=== PATIENT | male | born 1985 | race Caucasian/White ===

== ENCOUNTER 2017-06-09 05:30 | Emergency (ER) | payer SELFPAY ==
[2017-06-09] MEDS ORDERED: 0.9 % SODIUM CHLORIDE 10 ML DISP.SYRIN. IV PRN (06:00)
--- NOTE | 2017-06-09 06:01 | PHYS DOC ---
Past History Past Medical History: No Pertinent History Adult General Chief Complaint Chief Complaint: right flank pain HPI HPI 31-year-old male patient complaining of sudden onset of right flank pain when he woke up at 4 AM to go to the bathroom as a constant sharp pain with radiation to right lower quadrant and left flank and associated with 2 episodes of vomiting at arrival to ER. Patient rated his pain 10 over 10 and denies history of the same pain or recent dehydration or kidney stone. Patient denies diarrhea and constipation and fever and chills. Review of Systems Review of Systems Constitutional: Denies fever or chills [] Eyes: Denies change in visual acuity, redness, or eye pain [] HENT: Denies nasal congestion or sore throat [] Respiratory: Denies cough or shortness of breath [] Cardiovascular: No additional information not addressed in HPI [] GI: Denies abdominal pain, bloody stools or diarrhea , reports nausea and vomiting[] : Denies dysuria or hematuria, reports flank pain and frequency [] Musculoskeletal: Denies back pain or joint pain [] Integument: Denies rash or skin lesions [] Neurologic: Denies headache, focal weakness or sensory changes [] Endocrine: Denies polyuria or polydipsia [] All other systems were reviewed and found to be within normal limits, except as documented in this note. Family History Family History No pertinent family medical history was reported Current Medications Current Medications Current medications were reviewed Allergies Allergies Amoxicillin Physical Exam Physical Exam Constitutional: Well developed, moderate distress, non-toxic appearance. [] HENT: Normocephalic, atraumatic, Eyes: EOMI, conjunctiva normal, no discharge. [] Neck: Normal range of motion, no tenderness, supple, no stridor. [] Cardiovascular:Heart rate regular rhythm, Lungs & Thorax: Bilateral breath sounds clear to auscultation [] Abdomen: Bowel sounds normal, soft, no masses, no pulsatile masses. [] Skin: Warm, dry, no erythema, no rash. [] Back: No tenderness, no CVA tenderness. [] Extremities: No tenderness, no cyanosis, no clubbing, ROM intact, no edema. [] Neurologic: Alert and oriented X 3, normal motor function, normal sensory function, no focal deficits noted. [] Psychologic: Affect normal, judgement normal, mood normal. [] Current Patient Data Vital Signs Vital Signs Date Time Temp Pulse Resp B/P (MAP) Pulse Ox O2 Delivery O2 Flow Rate FiO2 06/09/17 05:35 97.7 85 22 99 Room Air Lab Results Laboratory Tests Test 06/09/17 06:05 White Blood Count 6.9 x10^3/uL (4.0-11.0) Red Blood Count 5.44 x10^6/uL (4.30-5.70) Hemoglobin 16.0 g/dL (13.0-17.5) Hematocrit 47.3 % (39.0-53.0) Mean Corpuscular Volume 87 fL (79-100) Mean Corpuscular Hemoglobin 30 pg (25-35) Mean Corpuscular Hemoglobin Concent 34 g/dL (31-37) Red Cell Distribution Width 14.1 % (11.5-14.5) Platelet Count 297 x10^3/uL (140-400) Neutrophils (%) (Auto) 43 % (31-73) Lymphocytes (%) (Auto) 44 % (24-48) Monocytes (%) (Auto) 8 % (0-9) Eosinophils (%) (Auto) 4 % (0-3) Basophils (%) (Auto) 1 % (0-3) Neutrophils # (Auto) 3.0 x10^3uL (1.8-7.7) Lymphocytes # (Auto) 3.1 x10^3/uL (1.0-4.8) Monocytes # (Auto) 0.6 x10^3/uL (0.0-1.1) Eosinophils # (Auto) 0.2 x10^3/uL (0.0-0.7) Basophils # (Auto) 0.0 x10^3/uL (0.0-0.2) Urine Collection Type Unknown Urine Color Yellow Urine Clarity Hazy Urine pH 5.0 Urine Specific [place] >=1.030 Urine Protein Neg (NEG-TRACE) Urine Glucose (UA) Neg mg/dL (NEG) Urine Ketones (Stick) Neg mg/dL (NEG) Urine Blood Large (NEG) Urine Nitrite Neg (NEG) Urine Bilirubin Neg (NEG) Urine Urobilinogen Dipstick 0.2 mg/dL (0.2 mg/dL) Urine Leukocyte Esterase Neg (NEG) Urine RBC 20-40 /HPF (0-2) Urine WBC Occ /HPF (0-4) Urine Squamous Epithelial Cells Occ /LPF Urine Bacteria 0 /HPF (0-FEW) Urine Mucus Mod /LPF Sodium Level 140 mmol/L (136-145) Potassium Level 3.5 mmol/L (3.5-5.1) Chloride Level 102 mmol/L (98-107) Carbon Dioxide Level 26 mmol/L (21-32) Anion Gap 12 (6-14) Blood Urea Nitrogen 23 mg/dL (8-26) Creatinine 1.0 mg/dL (0.7-1.3) Estimated GFR (Cockcroft-Gault) 86.6 BUN/Creatinine Ratio 23 (6-20) Glucose Level 146 mg/dL (70-99) Calcium Level 8.9 mg/dL (8.5-10.1) Total Bilirubin 0.3 mg/dL (0.2-1.0) Aspartate Amino Transf (AST/SGOT) 22 U/L (15-37) Alanine Aminotransferase (ALT/SGPT) 38 U/L (16-63) Alkaline Phosphatase 89 U/L (46-116) Total Protein 7.7 g/dL (6.4-8.2) Albumin 4.0 g/dL (3.4-5.0) Albumin/Globulin Ratio 1.1 (1.0-1.7) Lipase 86 U/L (73-393) EKG EKG [] Radiology/Procedures Radiology/Procedures CT abd/pelvis Impressions: 3mm stone Course & Med Decision Making Course & Med Decision Making Pertinent Labs and Imaging are pending. [] Dragon Disclaimer Dragon Disclaimer This electronic medical record was generated, in whole or in part, using a voice recognition dictation system. Departure Departure: Impression: Primary Impression: Right flank pain Additional Impressions: Nausea and vomiting Kidney stone Disposition: 01 HOME, SELF-CARE Condition: STABLE Referrals: SHAE CESAR (PCP) Patient Instructions: Kidney Stones Additional Instructions: Jose was seen in the emergency department for abdominal pain. No emergency medical condition was found on history or physical exam. He did have normal labs and imaging that showed a kidney stone. He was given prescriptions for pain medications, nausea medication and Flomax to help and passed stone. He was advised to strain his urine and to discontinue these medications after passing the stone. He is advised follow-up with his primary care doctor as needed for further management. Scripts Ondansetron (ZOFRAN ODT) 4 Mg Tab.rapdis 1 TAB SL Q8HRS, #15 TAB Prov: LELA THAKKAR MD 06/09/17 Hydrocodone Bit/Acetaminophen (NORCO 5-325 TABLET) 1 Each Tablet 1 TAB PO TID for 3 Days, #9 TAB Prov: LELA THAKKAR MD 06/09/17 Tamsulosin Hcl (FLOMAX) 0.4 Mg Cap.er.24h 1 CAP PO DAILY for 14 Days, #14 CAP 11 Refills Prov: LELA THAKKAR MD 06/09/17 Problem Qualifiers MAICO GARCIA MD Jun 09, 2017 06:01 LELA THAKKAR MD Jun 09, 2017 07:10
[2017-06-09] MEDS ORDERED: ONDANSETRON PF 4 MG/2 ML VIAL. IV ONE ×2 (06:15)
[2017-06-09] MEDS ORDERED: KETOROLAC 30 MG/ML VIAL. IV ONE (06:15)
[2017-06-09] MEDS ORDERED: IV NORMAL SALINE 1,000ML 1,000 ML IV SCH (06:15)
[2017-06-09 06:31] LABS: ALBUMIN/GLOBULIN RATIO 1.1 (1.0-1.7); CALCIUM 8.9 mg/dL (8.5-10.1); GFR 86.6; POTASSIUM 3.5 mmol/L (3.5-5.1); TOTAL BILIRUBIN 0.3 mg/dL (0.2-1.0); TOTAL PROTEIN 7.7 g/dL (6.4-8.2)
[2017-06-09 06:34] LABS: BASO % 1 % (0-3); EOS # 0.2 x10^3/uL (0.0-0.7); EOS % 4 % (0-3); HEMATOCRIT 47.3 % (39.0-53.0); LYMPH # 3.1 x10^3/uL (1.0-4.8); LYMPH % 44 % (24-48); MEAN CORPUSCULAR HEMOGLOBIN 30 pg (25-35); MEAN CORPUSCULAR HGB CONC 34 g/dL (31-37); MEAN CORPUSCULAR VOLUME 87 fL (79-100); MONO # 0.6 x10^3/uL (0.0-1.1); MONO % 8 % (0-9); NEUT % 43 % (31-73); PLATELET COUNT 297 x10^3/uL (140-400); RED BLOOD COUNT 5.44 x10^6/uL (4.30-5.70); RED CELL DISTRIBUTION WIDTH 14.1 % (11.5-14.5); WHITE BLOOD COUNT 6.9 x10^3/uL (4.0-11.0)
[2017-06-09 06:44] LABS: BACTERIA,URINE 0 /HPF (0-FEW); BILIRUBIN,URINE NEG (NEG); CLARITY,URINE HAZY; COLOR,URINE YELLOW; GLUCOSE,URINE NEG (NEG); NITRITE,URINE NEG (NEG); RBC,URINE 20-40 /HPF (0-2); SQUAMOUS EPITHELIAL CELL,UR OCC /LPF; UROBILINOGEN,URINE 0.2 mg/dL (0.2 mg/dL); WBC,URINE OCC /HPF (0-4)
[2017-06-09 07:24] VITALS: BP 98/58
--- NOTE | 2017-06-09 07:41 | RAD ---
EXAM: CT abdomen/pelvis without contrast. HISTORY: Right flank pain, nausea/vomiting. TECHNIQUE: Computed tomography of the abdomen and pelvis was performed without intravenous contrast. COMPARISON: None. FINDINGS: Lung windows through the visualized portions of the bases reveal mild atelectasis. Bone windows reveal no suspicious lesions. There is a 3 mm calculus at the orifice of the right ureterovesical junction. There is mild proximal hydroureter. Additional bilateral renal calculi measure up to 4 mm on the left and 3 mm on the right. The kidneys are otherwise unremarkable without contrast. There are calcified granulomas in the spleen. The liver, pancreas, adrenal glands and gallbladder are unremarkable without contrast. There are no pathologically enlarged lymph nodes. The appendix is not inflamed. There is no obstruction. IMPRESSION: 1. 3 mm calculus at the orifice of the right ureterovesical junction versus already in the bladder lumen. 2. Multiple additional bilateral renal calculi measure up to 4 mm on the left. *One or more of the following individualized dose reduction techniques were utilized for this examination: 1. Automated exposure control. 2. Adjustment of the mA and/or kV according to patient size. 3. Use of iterative reconstruction technique.
[2017-06-09] MEDS ORDERED: TAMSULOSIN 0.4 MG CAP.ER.24H. PO ONE (07:45)
[2017-06-09] MEDS ORDERED: ONDA4TAB10 SL (07:46)
[2017-06-09] MEDS ORDERED: HYDR-971 PO (07:46)
[2017-06-09] MEDS ORDERED: TAMS0.4C97 PO (07:46)
== END 2017-06-09 07:58 | disposition home or self-care (01) ==
LOC: ER 05:30
DX: N20.0 Calculus of kidney (principal); Z88.1 Allergy status to other antibiotic agents
CPT/HCPCS: 36415; 74176; 80053; 81001; 83690; 85025; 96361; 96374; 96375; 99285; J1885; J2405; J7030

== ENCOUNTER 2017-12-14 08:40 | Emergency (ER) | payer SELFPAY ==
[~2017-12-14] VITALS: Ht 170.2 cm; Wt 65.0 kg
[~2017-12-14 08:40] MED LIST: HYDR-971 PO; ONDA4TAB10 SL; TAMS0.4C97 PO
[2017-12-14] MEDS ORDERED: IV NORMAL SALINE 1,000ML 1,000 ML IV SCH (08:50)
[2017-12-14] MEDS ORDERED: ONDANSETRON PF 4 MG/2 ML VIAL. IV ONE (09:20)
[2017-12-14] MEDS ORDERED: KETOROLAC 30 MG/ML VIAL. IV ONE (09:20)
[2017-12-14 09:27] LABS: BASO # 0.1 x10^3/uL (0.0-0.2); BASO % 1 % (0-3); EOS # 0.1 x10^3/uL (0.0-0.7); EOS % 1 % (0-3); HEMATOCRIT 47.4 % (39.0-53.0); LYMPH # 1.1 x10^3/uL (1.0-4.8); LYMPH % 15 % (24-48); MEAN CORPUSCULAR HEMOGLOBIN 30 pg (25-35); MEAN CORPUSCULAR HGB CONC 34 g/dL (31-37); MEAN CORPUSCULAR VOLUME 88 fL (79-100); MONO # 0.4 x10^3/uL (0.0-1.1); MONO % 6 % (0-9); NEUT # 5.7 x10^3uL (1.8-7.7); NEUT % 78 % (31-73); PLATELET COUNT 277 x10^3/uL (140-400); RED BLOOD COUNT 5.37 x10^6/uL (4.30-5.70); RED CELL DISTRIBUTION WIDTH 13.9 % (11.5-14.5); WHITE BLOOD COUNT 7.3 x10^3/uL (4.0-11.0)
--- NOTE | 2017-12-14 09:37 | RAD ---
CT Abdomen and Pelvis without contrast History: Right flank pain, history of kidney stones Technique: Noncontrast CT imaging was performed of the abdomen and pelvis. Multiplanar images are reviewed. Exposure: One or more of the following individualized dose reduction techniques were utilized for this examination: 1. Automated exposure control 2. Adjustment of the mA and/or kV according to patient size 3. Use of iterative reconstruction technique. Comparison: 06/09/2017 Findings: There is a 3 to 4 mm calculus at the right ureterovesical junction. There is very mild right hydroureteronephrosis. This is presumably previously seen superior right renal calculus, 2 residual inferior right renal calculi with the largest about 2-3 mm. There are 3 left renal calculi with the largest about 4 mm. There is no left hydronephrosis. Accurate evaluation of abdominal visceral organs is limited without intravenous contrast. There is no obvious abnormality of the spleen, liver, or pancreas. There are couple of splenic granulomas. There is no adrenal nodularity. Gallbladder is present without obvious intraluminal abnormality by CT. No significantly enlarged nodes are identified. Accurate evaluation of bowel is limited without oral contrast. There is a small quantity of nonspecific dependent free fluid in the right pelvis, also small focus of dependent nonspecific calcific appearing density present not apparent on previous exam. There is questionable visualization of a segment of the appendix. There is mild lumbar dextroscoliosis. Impression: 1. There is very mild right hydroureteronephrosis, 3 to 4 mm calculus at the right ureterovesical junction. There are small bilateral renal calculi. 2. There is minimal dependent free fluid in the right pelvis, also small focus of nonspecific dependent calcification dependently. Electronically signed by: Jarrod Clark MD (12/14/2017 9:34 AM) [id number]
[2017-12-14 09:40] LABS: BACTERIA,URINE FEW /HPF (0-FEW); BILIRUBIN,URINE NEG (NEG); CLARITY,URINE CLEAR; COLOR,URINE YELLOW; GLUCOSE,URINE NEG (NEG); NITRITE,URINE NEG (NEG); SQUAMOUS EPITHELIAL CELL,UR OCC /LPF; UROBILINOGEN,URINE 0.2 mg/dL (0.2 mg/dL); WBC,URINE 0 /HPF (0-4)
[2017-12-14 09:44] LABS: ALBUMIN 4.2 g/dL (3.4-5.0); ALBUMIN/GLOBULIN RATIO 1.1 (1.0-1.7); CALCIUM 9.3 mg/dL (8.5-10.1); CREATININE 1.4 mg/dL (0.7-1.3); GFR 58.4; POTASSIUM 3.9 mmol/L (3.5-5.1); TOTAL BILIRUBIN 0.5 mg/dL (0.2-1.0); TOTAL PROTEIN 8.1 g/dL (6.4-8.2)
[2017-12-14] MEDS ORDERED: HYDR-971 PO (10:08)
[2017-12-14] MEDS ORDERED: TAMS0.4C97 PO (10:08)
[2017-12-14] MEDS ORDERED: NAPR-683 PO (10:08)
--- NOTE | 2017-12-14 10:08 | PHYS DOC ---
Past History Past Medical History: Kidney Stones Past Surgical History: No Surgical History Alcohol Use: Occasionally Drug Use: None Adult General Chief Complaint Chief Complaint: FLANK PAIN HPI HPI Patient is a 32-year-old male who presents with complaining of right flank pain that woke him up since this morning as a constant pain with episodes of sharp pain with radiation to right testicle. Patient complaining of nausea and vomiting and states she had history of kidney stone another location with the same pain. Patient denies recent dehydration, fever and chills. States he was not able to urinate since this morning. Review of Systems Review of Systems Constitutional: Denies fever or chills [] Eyes: Denies change in visual acuity, redness, or eye pain [] HENT: Denies nasal congestion or sore throat [] Respiratory: Denies cough or shortness of breath [] Cardiovascular: No additional information not addressed in HPI [] GI: Reports abdominal pain, nausea, vomiting, denies bloody stools or diarrhea [ ] : Denies dysuria or hematuria [] Musculoskeletal: Denies back pain or joint pain [] Integument: Denies rash or skin lesions [] Neurologic: Denies headache, focal weakness or sensory changes [] Endocrine: Denies polyuria or polydipsia [] All other systems were reviewed and found to be within normal limits, except as documented in this note. Current Medications Current Medications Current Medications Medications (Trade) Dose Ordered Sig/Jonah Start Time Stop Time Status Last Admin Dose Admin Ketorolac Tromethamine (Toradol 30mg Vial) 30 mg 1X ONCE 12/14/17 09:20 12/14/17 09:21 DC 12/14/17 09:16 30 MG Ondansetron HCl (Zofran) 4 mg 1X ONCE 12/14/17 09:20 12/14/17 09:21 DC 12/14/17 09:14 4 MG Sodium Chloride 1,000 ml @ 1,000 mls/hr Q1H 12/14/17 08:50 12/14/17 09:49 DC 12/14/17 09:14 1,000 MLS/HR Tamsulosin HCl (Flomax) 0.4 mg 1X ONCE 12/14/17 10:00 12/14/17 10:01 UNV Allergies Allergies Allergies Coded Allergies Type Severity Reaction Last Updated Verified amoxicillin Allergy Unknown 06/09/17 Yes Physical Exam Physical Exam Constitutional: Well developed, well nourished, moderate distress, non-toxic appearance. [] HENT: Normocephalic, atraumatic, oropharynx moist, no oral exudates, nose normal. [] Eyes: PERRLA, EOMI, conjunctiva normal, no discharge. [] Neck: Normal range of motion, no tenderness, supple, no stridor. [] Cardiovascular:Heart rate regular rhythm, no murmur [] Lungs & Thorax: Bilateral breath sounds clear to auscultation [] Abdomen: Bowel sounds normal, soft, no tenderness, no masses, no pulsatile masses. [] Skin: Warm, dry, no erythema, no rash. [] Back: No tenderness, no CVA tenderness. [] Extremities: No tenderness, no cyanosis, no clubbing, ROM intact, no edema. [] Neurologic: Alert and oriented X 3, normal motor function, normal sensory function, no focal deficits noted. [] Psychologic: Affect normal, judgement normal, mood normal. [] Current Patient Data Vital Signs Vital Signs Date Time Temp Pulse Resp B/P (MAP) Pulse Ox O2 Delivery O2 Flow Rate FiO2 12/14/17 08:47 97.9 83 15 100 Room Air Lab Results Laboratory Tests Test 12/14/17 09:05 12/14/17 09:13 Urine Collection Type Unknown Urine Color Yellow Urine Clarity Clear Urine pH >8.5 Urine Specific [place] 1.015 Urine Protein 30 mg/dl (NEG-TRACE) Urine Glucose (UA) Neg mg/dL (NEG) Urine Ketones (Stick) Neg mg/dL (NEG) Urine Blood Small (NEG) Urine Nitrite Neg (NEG) Urine Bilirubin Neg (NEG) Urine Urobilinogen Dipstick 0.2 mg/dL (0.2 mg/dL) Urine Leukocyte Esterase Neg (NEG) Urine RBC 11-20 /HPF (0-2) Urine WBC 0 /HPF (0-4) Urine Squamous Epithelial Cells Occ /LPF Urine Bacteria Few /HPF (0-FEW) Urine Mucus Mod /LPF White Blood Count 7.3 x10^3/uL (4.0-11.0) Red Blood Count 5.37 x10^6/uL (4.30-5.70) Hemoglobin 16.0 g/dL (13.0-17.5) Hematocrit 47.4 % (39.0-53.0) Mean Corpuscular Volume 88 fL (79-100) Mean Corpuscular Hemoglobin 30 pg (25-35) Mean Corpuscular Hemoglobin Concent 34 g/dL (31-37) Red Cell Distribution Width 13.9 % (11.5-14.5) Platelet Count 277 x10^3/uL (140-400) Neutrophils (%) (Auto) 78 % (31-73) H Lymphocytes (%) (Auto) 15 % (24-48) L Monocytes (%) (Auto) 6 % (0-9) Eosinophils (%) (Auto) 1 % (0-3) Basophils (%) (Auto) 1 % (0-3) Neutrophils # (Auto) 5.7 x10^3uL (1.8-7.7) Lymphocytes # (Auto) 1.1 x10^3/uL (1.0-4.8) Monocytes # (Auto) 0.4 x10^3/uL (0.0-1.1) Eosinophils # (Auto) 0.1 x10^3/uL (0.0-0.7) Basophils # (Auto) 0.1 x10^3/uL (0.0-0.2) Sodium Level 140 mmol/L (136-145) Potassium Level 3.9 mmol/L (3.5-5.1) Chloride Level 103 mmol/L (98-107) Carbon Dioxide Level 25 mmol/L (21-32) Anion Gap 12 (6-14) Blood Urea Nitrogen 23 mg/dL (8-26) Creatinine 1.4 mg/dL (0.7-1.3) H Estimated GFR (Cockcroft-Gault) 58.4 BUN/Creatinine Ratio 16 (6-20) Glucose Level 126 mg/dL (70-99) H Calcium Level 9.3 mg/dL (8.5-10.1) Total Bilirubin 0.5 mg/dL (0.2-1.0) Aspartate Amino Transferase (AST) 24 U/L (15-37) Alanine Aminotransferase (ALT) 41 U/L (16-63) Alkaline Phosphatase 97 U/L (46-116) Total Protein 8.1 g/dL (6.4-8.2) Albumin 4.2 g/dL (3.4-5.0) Albumin/Globulin Ratio 1.1 (1.0-1.7) EKG EKG [] Radiology/Procedures Radiology/Procedures [][address] [id number] IMAGING REPORT Signed PATIENT: KANDICE YOUNG ACCOUNT: [id number] : 1985 LOCATION: ER AGE: 32 SEX: M EXAM STATUS: REG ER ORD. PHYSICIAN: MAICO GARCIA MD REASON: flank pain PROCEDURE: CT ABDOMEN PELVIS WO CONTRAST CT Abdomen and Pelvis without contrast History: Right flank pain, history of kidney stones Technique: Noncontrast CT imaging was performed of the abdomen and pelvis. Multiplanar images are reviewed. Exposure: One or more of the following individualized dose reduction techniques were utilized for this examination: 1. Automated exposure control 2. Adjustment of the mA and/or kV according to patient size 3. Use of iterative reconstruction technique. Comparison: 06/09/2017 Findings: There is a 3 to 4 mm calculus at the right ureterovesical junction. There is very mild right hydroureteronephrosis. This is presumably previously seen superior right renal calculus, 2 residual inferior right renal calculi with the largest about 2-3 mm. There are 3 left renal calculi with the largest about 4 mm. There is no left hydronephrosis. Accurate evaluation of abdominal visceral organs is limited without intravenous contrast. There is no obvious abnormality of the spleen, liver, or pancreas. There are couple of splenic granulomas. There is no adrenal nodularity. Gallbladder is present without obvious intraluminal abnormality by CT. No significantly enlarged nodes are identified. Accurate evaluation of bowel is limited without oral contrast. There is a small quantity of nonspecific dependent free fluid in the right pelvis, also small focus of dependent nonspecific calcific appearing density present not apparent on previous exam. There is questionable visualization of a segment of the appendix. There is mild lumbar dextroscoliosis. Impression: 1. There is very mild right hydroureteronephrosis, 3 to 4 mm calculus at the right ureterovesical junction. There are small bilateral renal calculi. 2. There is minimal dependent free fluid in the right pelvis, also small focus of nonspecific dependent calcification dependently. Electronically signed by: Lala Clark MD (12/14/2017 9:34 AM) [facility] DICTATED AND SIGNED BY: LALA CLARK MD DATE: 12/14/17 0926 CC: MAICO GARCIA MD; SHAE CESAR ~ Course & Med Decision Making Course & Med Decision Making Pertinent Labs and Imaging studies reviewed. (See chart for details) discharge: I've spoken with the patient and/or caregivers. I've explained the patient's condition, diagnosis and treatment plan based on information available to me at this time. I've answered the patient's and/or caregivers questions and addressed any concerns. The patient and/or caregivers have a good understanding the patient's diagnosis, condition and treatment plan as can be expected at this point. Vital signs have been stabilized. The patient's condition is stable for discharge from the emergency department. The patient will pursue further outpatient evaluation with her primary care provider or other designated consulting physician as outlined in the discharge instructions. Patient and/or caregivers are agreeable to this plan of care and follow-up instructions have been explained in detail. The patient and/or caregivers have received these instructions in written format and expressed understanding of these discharge instructions. The patient and her caregivers are aware that if any significant change in condition or worsening of symptoms should prompt him to immediately return to this of the closest emergency department. If an emergent department is not readily available I would encourage him to call 911. [] Dragon Disclaimer Dragon Disclaimer This electronic medical record was generated, in whole or in part, using a voice recognition dictation system. Departure Departure: Impression: Primary Impression: Renal colic on right side Additional Impressions: Ureterolithiasis Dehydration Disposition: 01 HOME, SELF-CARE (@1003) Condition: IMPROVED Referrals: SHAE CESAR (PCP) ESTER LEMUS MD Patient Instructions: Diet for Kidney Stones, Kidney Stones Additional Instructions: Drink plenty of liquids Follow-up with urologist in 2-3 days Return to ER if not getting better Strain all of your urine Scripts Naproxen (NAPROSYN) 500 Mg Tablet 1 TAB PO BID, #20 TAB Prov: MAICO GARCIA MD 12/14/17 Hydrocodone Bit/Acetaminophen (NORCO 5-325 TABLET) 1 Each Tablet 1 TAB PO PRN Q6HRS PRN for PAIN, #14 TAB 0 Refills Prov: MAICO GARCIA MD 12/14/17 Tamsulosin Hcl (FLOMAX) 0.4 Mg Cap.er.24h 0.4 MG PO DAILY, #14 CAP.SR Prov: MAICO GARCIA MD 12/14/17 Problem Qualifiers MAICO GARCIA MD Dec 14, 2017 10:08
[2017-12-14 10:13] VITALS: BP 124/75
[2017-12-14] MEDS ORDERED: TAMSULOSIN 0.4 MG CAP.ER.24H. PO ONE (10:30)
--- NOTE | 2017-12-14 11:12 | PHYS DOC ---
Past History Past Medical History: Kidney Stones Past Surgical History: No Surgical History Alcohol Use: Occasionally Drug Use: None Adult General Chief Complaint Chief Complaint: FLANK PAIN HPI HPI Review of Systems Review of Systems Current Medications Current Medications Current Medications Medications (Trade) Dose Ordered Sig/Jonah Start Time Stop Time Status Last Admin Dose Admin Ketorolac Tromethamine (Toradol 30mg Vial) 30 mg 1X ONCE 12/14/17 09:20 12/14/17 09:21 DC 12/14/17 09:16 30 MG Ondansetron HCl (Zofran) 4 mg 1X ONCE 12/14/17 09:20 12/14/17 09:21 DC 12/14/17 09:14 4 MG Sodium Chloride 1,000 ml @ 1,000 mls/hr Q1H 12/14/17 08:50 12/14/17 09:49 DC 12/14/17 09:14 1,000 MLS/HR Tamsulosin HCl (Flomax) 0.4 mg 1X ONCE 12/14/17 10:00 12/14/17 10:01 UNV Allergies Allergies Allergies Coded Allergies Type Severity Reaction Last Updated Verified amoxicillin Allergy Unknown 06/09/17 Yes Physical Exam Physical Exam Current Patient Data Vital Signs Vital Signs Date Time Temp Pulse Resp B/P (MAP) Pulse Ox O2 Delivery O2 Flow Rate FiO2 12/14/17 08:47 97.9 83 15 100 Room Air Lab Results Laboratory Tests Test 12/14/17 09:05 12/14/17 09:13 Urine Collection Type Unknown Urine Color Yellow Urine Clarity Clear Urine pH >8.5 Urine Specific [place] 1.015 Urine Protein 30 mg/dl (NEG-TRACE) Urine Glucose (UA) Neg mg/dL (NEG) Urine Ketones (Stick) Neg mg/dL (NEG) Urine Blood Small (NEG) Urine Nitrite Neg (NEG) Urine Bilirubin Neg (NEG) Urine Urobilinogen Dipstick 0.2 mg/dL (0.2 mg/dL) Urine Leukocyte Esterase Neg (NEG) Urine RBC 11-20 /HPF (0-2) Urine WBC 0 /HPF (0-4) Urine Squamous Epithelial Cells Occ /LPF Urine Bacteria Few /HPF (0-FEW) Urine Mucus Mod /LPF White Blood Count 7.3 x10^3/uL (4.0-11.0) Red Blood Count 5.37 x10^6/uL (4.30-5.70) Hemoglobin 16.0 g/dL (13.0-17.5) Hematocrit 47.4 % (39.0-53.0) Mean Corpuscular Volume 88 fL (79-100) Mean Corpuscular Hemoglobin 30 pg (25-35) Mean Corpuscular Hemoglobin Concent 34 g/dL (31-37) Red Cell Distribution Width 13.9 % (11.5-14.5) Platelet Count 277 x10^3/uL (140-400) Neutrophils (%) (Auto) 78 % (31-73) H Lymphocytes (%) (Auto) 15 % (24-48) L Monocytes (%) (Auto) 6 % (0-9) Eosinophils (%) (Auto) 1 % (0-3) Basophils (%) (Auto) 1 % (0-3) Neutrophils # (Auto) 5.7 x10^3uL (1.8-7.7) Lymphocytes # (Auto) 1.1 x10^3/uL (1.0-4.8) Monocytes # (Auto) 0.4 x10^3/uL (0.0-1.1) Eosinophils # (Auto) 0.1 x10^3/uL (0.0-0.7) Basophils # (Auto) 0.1 x10^3/uL (0.0-0.2) Sodium Level 140 mmol/L (136-145) Potassium Level 3.9 mmol/L (3.5-5.1) Chloride Level 103 mmol/L (98-107) Carbon Dioxide Level 25 mmol/L (21-32) Anion Gap 12 (6-14) Blood Urea Nitrogen 23 mg/dL (8-26) Creatinine 1.4 mg/dL (0.7-1.3) H Estimated GFR (Cockcroft-Gault) 58.4 BUN/Creatinine Ratio 16 (6-20) Glucose Level 126 mg/dL (70-99) H Calcium Level 9.3 mg/dL (8.5-10.1) Total Bilirubin 0.5 mg/dL (0.2-1.0) Aspartate Amino Transferase (AST) 24 U/L (15-37) Alanine Aminotransferase (ALT) 41 U/L (16-63) Alkaline Phosphatase 97 U/L (46-116) Total Protein 8.1 g/dL (6.4-8.2) Albumin 4.2 g/dL (3.4-5.0) Albumin/Globulin Ratio 1.1 (1.0-1.7) EKG EKG [] Radiology/Procedures Radiology/Procedures [] Course & Med Decision Making Course & Med Decision Making This chart is duplicated, please see the other complete chart. [] Dragon Disclaimer Dragon Disclaimer This electronic medical record was generated, in whole or in part, using a voice recognition dictation system. Departure Departure: Impression: Primary Impression: Renal colic on right side Additional Impressions: Ureterolithiasis Dehydration Disposition: HOME, SELF-CARE Condition: IMPROVED Referrals: SHAE CESAR (PCP) ESTER LEMUS MD Patient Instructions: Kidney Stones, Diet for Kidney Stones Additional Instructions: Drink plenty of liquids Follow-up with urologist in 2-3 days Return to ER if not getting better Strain all of your urine Scripts Naproxen (NAPROSYN) 500 Mg Tablet 1 TAB PO BID, #20 TAB Prov: MAICO GARCIA MD 12/14/17 Hydrocodone Bit/Acetaminophen (NORCO 5-325 TABLET) 1 Each Tablet 1 TAB PO PRN Q6HRS PRN for PAIN, #14 TAB 0 Refills Prov: MAICO GARCIA MD 12/14/17 Tamsulosin Hcl (FLOMAX) 0.4 Mg Cap.er.24h 0.4 MG PO DAILY, #14 CAP.SR Prov: MAICO GARCIA MD 12/14/17 Problem Qualifiers MAICO GARCIA MD Dec 14, 2017 11:12
== END 2017-12-14 10:27 | disposition home or self-care (01) ==
LOC: ER 08:40
DX: N13.2 Hydronephrosis with renal and ureteral calculous obstruction (principal); E86.0 Dehydration; Z87.442 Personal history of urinary calculi; Z88.1 Allergy status to other antibiotic agents
CPT/HCPCS: 36415; 74176; 80053; 81001; 85025; 96361; 96374; 96375; 99285; J1885; J2405; J7030

== ENCOUNTER 2017-12-16 05:01 | Emergency (ER) | payer BC ==
[~2017-12-16] VITALS: Ht 172.7 cm; Wt 64.9 kg
[~2017-12-16 05:01] MED LIST changes: +NAPR-683 PO
[2017-12-16] MEDS ORDERED: KETOROLAC 30 MG/ML VIAL. ONE (05:21)
--- NOTE | 2017-12-16 05:34 | PHYS DOC ---
Past History Past Medical History: Kidney Stones Past Surgical History: No Surgical History Alcohol Use: Occasionally Drug Use: None Adult General Chief Complaint Chief Complaint: FLANK PAIN HPI HPI Patient is a 32 year old sex who presents with complaint of right flank pain. The patient was seen 2 days ago in the emergency department and diagnosed with a right distal ureteral stone measuring approximately 3-4 mm. The patient was treated with Flomax and pain medication with improvement symptoms. Patient states that his symptoms initially had improved yesterday, however he started getting intermittent symptoms towards evening and states that they then became persistent starting last night. Patient states currently his pain has slightly improved and rates it as 7 out of 10 but states that it was 10 out of 10 upon awakening this morning. Patient states he has been taking the medications prescribed his previous visit that included Gray, naproxen, and Flomax. The patient has not contacted a urologist at this time. Patient states that he has felt feverish but has not measured his temperature at home. Patient had one episode of vomiting since onset of pain this evening. Review of Systems Review of Systems Constitutional: Denies fever or chills [] Eyes: Denies change in visual acuity, redness, or eye pain [] HENT: Denies nasal congestion or sore throat [] Respiratory: Denies cough or shortness of breath [] Cardiovascular: No additional information not addressed in HPI [] GI: Vomiting, nausea, vomiting, denies bloody stools or diarrhea [] : Denies dysuria or hematuria [] Musculoskeletal: Right flank pain[] Integument: Denies rash or skin lesions [] Neurologic: Denies headache, focal weakness or sensory changes [] All other systems were reviewed and found to be within normal limits, except as documented in this note. Current Medications Current Medications Current Medications Medications (Trade) Dose Ordered Sig/Jonah Start Time Stop Time Status Last Admin Dose Admin Ketorolac Tromethamine (Toradol 30mg Vial) 30 mg 1X ONCE 12/16/17 05:30 12/16/17 05:31 UNV Morphine Sulfate (Morphine 4mg Syringe) 4 mg PRN Q15MIN PRN 12/16/17 05:30 12/17/17 05:29 UNV Ondansetron HCl (Zofran) 4 mg 1X ONCE 12/16/17 05:30 12/16/17 05:31 UNV Sodium Chloride 1,000 ml @ 1,000 mls/hr Q1H 12/16/17 05:22 12/16/17 06:21 UNV Allergies Allergies Allergies Coded Allergies Type Severity Reaction Last Updated Verified amoxicillin Allergy Unknown 06/09/17 Yes Physical Exam Physical Exam Constitutional: Alert, afebrile, appears in moderate discomfort. [] HENT: Normocephalic, atraumatic, bilateral external ears normal, oropharynx moist, no oral exudates, nose normal. [] Eyes: PERRLA, EOMI, conjunctiva normal, no discharge. [] Neck: Normal range of motion, no tenderness, supple, no stridor. [] Cardiovascular:Heart rate regular rhythm, no murmur [] Lungs & Thorax: Bilateral breath sounds clear to auscultation [] Abdomen: Bowel sounds normal, soft, no tenderness, no masses, no pulsatile masses. [] Skin: Warm, dry, no erythema, no rash. [] Back: No tenderness, no CVA tenderness. [] Extremities: No tenderness, no cyanosis, no clubbing, ROM intact, no edema. [] Neurologic: Alert and oriented X 3, normal motor function, normal sensory function, no focal deficits noted. [] Current Patient Data Vital Signs Vital Signs Date Time Temp Pulse Resp B/P (MAP) Pulse Ox O2 Delivery O2 Flow Rate FiO2 12/16/17 05:02 99.1 88 18 99 Room Air EKG EKG Not performed[] Radiology/Procedures Radiology/Procedures One view KUB x-ray interpreted by me: Persistent calcification in the right hemipelvis insistent with previously documented ureteral stone from CT exam on [] Course & Med Decision Making Course & Med Decision Making Pertinent Labs and Imaging studies reviewed. (See chart for details) The patient was started on IV fluids, Toradol, morphine, and Zofran. At time of sign out, metabolic panel is pending. Care of patient was signed out to Dr. Howard at 0556. I reviewed the patient's labs and his creatinine has increased to 1.6. He has a white count of 13.9, but his urine was negative for infection. I discussed the case with Dr. Villanueva, urology and he feels that the patient does not have to be admitted unless his pain cannot be controlled. I discussed the option of going home versus transfer with the patient and has elected to go home. His pain has been controlled in the ED. He will continue to take the medications prescribed. I did add an additional prescription for Gray 5/325 as he should be almost out of his previous prescription. He is stable for discharge at this time. Dragon Disclaimer Dragon Disclaimer This electronic medical record was generated, in whole or in part, using a voice recognition dictation system. Departure Departure: Impression: Primary Impression: Ureterolithiasis Referrals: SHAE CESAR (PCP) Scripts Hydrocodone Bit/Acetaminophen (NORCO 5-325 TABLET) 1 Each Tablet 1 TAB PO PRN Q6HRS PRN for PAIN, #14 TAB 0 Refills Prov: MARGRET HOWARD DO 12/16/17 SIMRAN PEREZ MD Dec 16, 2017 05:34 MARGRET HOWARD DO Dec 16, 2017 07:14
[2017-12-16 05:45] LABS: BASO # 0.1 x10^3/uL (0.0-0.2); BASO % 1 % (0-3); EOS # 0.2 x10^3/uL (0.0-0.7); EOS % 2 % (0-3); HEMOGLOBIN 15.1 g/dL (13.0-17.5); LYMPH # 1.2 x10^3/uL (1.0-4.8); LYMPH % 9 % (24-48); MEAN CORPUSCULAR HEMOGLOBIN 29 pg (25-35); MEAN CORPUSCULAR HGB CONC 34 g/dL (31-37); MEAN CORPUSCULAR VOLUME 88 fL (79-100); MONO # 1.2 x10^3/uL (0.0-1.1); MONO % 9 % (0-9); NEUT # 11.1 x10^3uL (1.8-7.7); NEUT % 80 % (31-73); PLATELET COUNT 280 x10^3/uL (140-400); RED BLOOD COUNT 5.13 x10^6/uL (4.30-5.70); RED CELL DISTRIBUTION WIDTH 13.9 % (11.5-14.5); WHITE BLOOD COUNT 13.9 x10^3/uL (4.0-11.0)
[2017-12-16] MEDS: ONDANSETRON PF 4 MG/2 ML VIAL. IV ONE (05:45)
[2017-12-16] MEDS: KETOROLAC 30 MG/ML VIAL. IV ONE (05:45)
[2017-12-16] MEDS: MORPHINE SULFATE 4 MG/ML DISP.SYRIN. IV/SQ PRN (05:46)
[2017-12-16] MEDS: IV NORMAL SALINE 1,000ML 1,000 ML IV SCH (05:47)
[2017-12-16 05:50] LABS: CALCIUM 8.9 mg/dL (8.5-10.1); CREATININE 1.6 mg/dL (0.7-1.3); POTASSIUM 3.8 mmol/L (3.5-5.1)
[2017-12-16 06:25] LABS: BACTERIA,URINE 0 /HPF (0-FEW); BILIRUBIN,URINE NEG (NEG); CLARITY,URINE CLEAR; COLOR,URINE YELLOW; GLUCOSE,URINE NEG (NEG); NITRITE,URINE NEG (NEG); RBC,URINE RARE /HPF (0-2); SQUAMOUS EPITHELIAL CELL,UR OCC /LPF; UROBILINOGEN,URINE 0.2 mg/dL (0.2 mg/dL); WBC,URINE 0 /HPF (0-4)
[2017-12-16 06:41] VITALS: BP 120/75
[2017-12-16] MEDS ORDERED: HYDR-971 PO (07:05)
--- NOTE | 2017-12-16 07:41 | RAD ---
KUB, 12/16/2017: History: Right flank pain, ureterolithiasis There is a moderate amount of stool in the colon in a nonspecific pattern. This partially obscures the left renal and bladder regions. There is a tiny radiopacity projected over lower pole of the right kidney compatible with a known intrarenal calculus. The right UVJ calculus seen on the 12/14/2017 CT study is not visible. It may have passed or it may be obscured by overlying bowel content. The liver is at the upper limits of normal in size. There is a mild right convexity lumbar scoliosis. IMPRESSION: 1. Tiny right intrarenal calculus. 2. Nonvisualization of the right UVJ calculus seen on the recent CT study.
== END 2017-12-16 07:19 | disposition home or self-care (01) ==
LOC: ER 05:01
DX: N20.1 Calculus of ureter (principal); Z87.442 Personal history of urinary calculi; Z88.1 Allergy status to other antibiotic agents
CPT/HCPCS: 36415; 74018; 80048; 81001; 85025; 96361; 96374; 96375; J1885; J2270; J2405; 99285-25; J7030

== ENCOUNTER 2019-04-29 10:25 | Emergency (ER) | payer BC, MEDICAID ==
[~2019-04-29] VITALS: Ht 170.2 cm; Wt 68.0 kg
[2019-04-29 10:25] VITALS: BP 127/81
[~2019-04-29 10:25] MED LIST changes: +HYDR-3165 PO; -HYDR-971 PO
[2019-04-29] MEDS ORDERED: LIDOCAINE 1% Multi-Dose 20 ML VIAL. ONE (10:34)
[2019-04-29] MEDS ORDERED: LIDOCAINE 1% Multi-Dose 20 ML VIAL. IJ ONE (10:45)
--- NOTE | 2019-04-29 10:56 | RAD ---
FINGER(S) LEFT History: Glass/foreign body to the left thumb Comparison: None. Findings: 3 views of the left hand with attention to the first digit are submitted. As seen on one image, there is a small linear radiopaque foreign body at the volar aspect of the mid to distal aspect of the distal first phalanx in the soft tissues estimated about 0.3 cm in size. No acute fracture or dislocation is identified. Impression: 1. There is a small radiopaque foreign body in the volar soft tissues at the level of the mid to distal aspect of the distal first phalanx. Electronically signed by: Jarrod Clark MD (04/29/2019 10:53 AM) [id number]
--- NOTE | 2019-04-29 11:31 | RAD ---
Left thumb 3 views. HISTORY: Post foreign body removal 3 views were taken of the left foot. Comparison is made with a study from earlier this morning. The opaque foreign body noted on the prior images no longer identified. There is no fracture or osseous abnormality. IMPRESSION: 1. No osseous abnormality noted in the left thumb. 2. Opaque foreign body no longer identified. Electronically signed by: Iglesia Perez MD (04/29/2019 11:28 AM) [id number]
[2019-04-29] MEDS ORDERED: CEPH-264 PO (11:49)
--- NOTE | 2019-04-29 11:49 | PHYS DOC ---
Past History Past Medical History: Kidney Stones Past Surgical History: No Surgical History Alcohol Use: Occasionally Drug Use: None Adult General Chief Complaint Chief Complaint: FINGER INJURY HPI HPI Patient is a 33-year-old male who presents with injury to his left thumb. Patient was reaching down to get his cell phone in between the cushions of his couch when he cut his thumb with a piece of glass from the cell phone glass that had cracked. Patient was able to get some of the glass out but he knows that they're still at least one more piece in there. He rates pain as mild to mo derate.[] Review of Systems Review of Systems Constitutional: Denies fever or chills [] Respiratory: Denies cough or shortness of breath [] Cardiovascular: No additional information not addressed in HPI [] Musculoskeletal: Positive right thumb injury/pain [] Integument: Positive laceration right thumb[] Current Medications Current Medications Current Medications Medications (Trade) Dose Ordered Sig/Jonah Start Time Stop Time Status Last Admin Dose Admin Lidocaine HCl 20 ml STK-MED ONCE 04/29/19 10:34 04/29/19 10:34 DC Allergies Allergies Allergies Coded Allergies Type Severity Reaction Last Updated Verified amoxicillin Allergy Unknown 06/09/17 Yes Physical Exam Physical Exam Constitutional: Well developed, well nourished, no acute distress, non-toxic appearance. [] Cardiovascular:Heart rate regular rhythm, no murmur [] Lungs & Thorax: Bilateral breath sounds clear to auscultation [] Abdomen: Bowel sounds normal, soft, no tenderness, no masses, no pulsatile masses. [] Skin: There is a 1 cm linear laceration noted to the palmar aspect of the left thumb extending into subcutaneous tissue with small foreign body. [] Current Patient Data Vital Signs Vital Signs Date Time Temp Pulse Resp B/P (MAP) Pulse Ox O2 Delivery O2 Flow Rate FiO2 04/29/19 10:25 97.7 77 16 99 Room Air EKG EKG [] Radiology/Procedures Radiology/Procedures [] Impressions: PROCEDURE: FINGER(S) LEFT FINGER(S) LEFT History: Glass/foreign body to the left thumb Comparison: None. Findings: 3 views of the left hand with attention to the first digit are submitted. As seen on one image, there is a small linear radiopaque foreign body at the volar aspect of the mid to distal aspect of the distal first phalanx in the soft tissues estimated about 0.3 cm in size. No acute fracture or dislocation is identified. Impression: 1. There is a small radiopaque foreign body in the volar soft tissues at the level of the mid to distal aspect of the distal first phalanx. Electronically signed by: Jarrod Clark MD (04/29/2019 10:53 AM) [facility] Course & Med Decision Making Course & Med Decision Making Pertinent Labs and Imaging studies reviewed. (See chart for details) Laceration Repair by me: Anesthesia: 1% lidocaine locally Location: Palmar aspect of left thumb Tendon/Joint/Nerves: No injury Foreign body: Small, approximately 0.75 cm long shard of glass removed without difficulty utilizing alligator forceps. Technique: A total of 3 Simple Interrupted Sutures were placed utilizing 6-0 Ethilon suture material. Complexity: No subcutaneous sutures/mucosal repair/edge excision Post Closure Length: 1 cm Patient's bleeding was easily controlled in the department and there is no indication of anemia. No evidence of compartment syndrome, neurologic injury, vascular injury, open joint, tendon laceration, or foreign body. Patient is appropriate for outpatient follow up. 48 hour wound check. Scar minimization instructions given. Repeat imaging was performed post foreign body removal and demonstrates no further foreign body. Dragon Disclaimer Dragon Disclaimer This electronic medical record was generated, in whole or in part, using a voice recognition dictation system. Departure Departure: Impression: Primary Impression: Laceration of thumb Additional Impression: Foreign body of finger of left hand Disposition: 01 HOME, SELF-CARE Condition: STABLE Referrals: SHAE CESAR (PCP) Patient Instructions: Foreign Body, Laceration Care, Adult Scripts Cephalexin (KEFLEX) 500 Mg Capsule 500 MG PO BID for prevent infection for 7 Days, #14 TAB Prov: CHERIE HOPPER Jr. DO 04/29/19 Problem Qualifiers Primary Impression: Laceration of thumb Encounter type: initial encounter Damage to nail status: without damage Foreign body presence: with foreign body Laterality: left Qualified Codes: S61.022A - Laceration with foreign body of left thumb without damage to nail, initial encounter Additional Impression: Foreign body of finger of left hand Encounter type: initial encounter Qualified Codes: S60.459A - Superficial foreign body of unspecified finger, initial encounter CHERIE HOPPER Jr. DO Apr 29, 2019 11:49
[2019-04-29] MEDS ORDERED: DIPHTH,PERTUSS(ACELL),TET TOX 0.5 ML DISP.SYRIN. VAX IM ONE (12:00)
== END 2019-04-29 11:50 | disposition home or self-care (01) ==
LOC: ER 10:25
DX: S61.022A Laceration with foreign body of left thumb without damage to nail, initial encounter (principal); Z87.442 Personal history of urinary calculi; Z88.1 Allergy status to other antibiotic agents; W25.XXXA Contact with sharp glass, initial encounter; Y93.89 Activity, other specified; Y92.89 Other specified places as the place of occurrence of the external cause; Y99.8 Other external cause status
CPT/HCPCS: 12041; 73140; 90471; 90715; 99284-25

== ENCOUNTER 2020-04-23 06:53 | Emergency (ER) | payer MEDICAID ==
[~2020-04-23] VITALS: Ht 172.7 cm; Wt 65.9 kg
[~2020-04-23 06:53] MED LIST changes: +CEPH-264 PO
[2020-04-23] MEDS ORDERED: KETOROLAC 15 MG/ML VIAL. IVP ONE (07:30)
[2020-04-23] MEDS ORDERED: ONDANSETRON PF 4 MG/2 ML VIAL. IVP ONE (07:30)
[2020-04-23] MEDS ORDERED: IV NORMAL SALINE 500ML 500 ML IV ONE (07:30)
--- NOTE | 2020-04-23 07:34 | PHYS DOC ---
Past History Past Medical History: Kidney Stones Past Surgical History: No Surgical History Alcohol Use: Occasionally Drug Use: None General Adult EDM: Chief Complaint: FLANK PAIN HPI: HPI: Patient is a 34-year-old male coming in for left flank pain starting about an hour prior to arrival. Patient states the pain woke him up, and was not present yesterday. States he has little bit of nausea but otherwise no other symptoms, denies any hematuria or dysuria. But the pain is very similar to his prior kidney stone. Has had 2 kidney stones in the past, one had to be removed around 2 years ago. States he otherwise has been well. Review of Systems: Review of Systems: My all other systems within normal limits except for as noted in the HPI Allergies: Allergies: Allergies Coded Allergies Type Severity Reaction Last Updated Verified amoxicillin Allergy Unknown 06/09/17 Yes Physical Exam: PE: Constitutional: Well developed, well nourished, no acute distress, non-toxic appearance. [] HENT: Normocephalic, atraumatic, bilateral external ears normal, nose normal. [] Eyes: PERRLA, conjunctiva normal, no discharge. [] Neck: No rigidity, supple, no stridor. [] Cardiovascular: Regular rate and rhythm, brisk cap refill [] Lungs & Thorax: Non labored symmetric respirations, no tachypnea or respiratory distress [] Abdomen: Soft, nondistended. Skin: Warm, dry, no erythema, no rash. [] Back: No tenderness, left CVA tenderness. [] Extremities: No deformities, range of motion grossly intact, no lower extremity edema [] Neurologic: Alert and oriented X 3, no focal deficits noted. [] Psychologic: Affect normal, judgement normal, mood normal. [] EKG: EKG: [] Radiology/Procedures: Radiology/Procedures: CT abdomen pelvis without contrast. HISTORY: Left flank pain CT scan the abdomen pelvis was done without contrast. Comparison is made with a study from November 2017. Lung bases are clear. There is no effusion. A tiny cysts in the left liver unchanged from the old study. Spleen and adrenal glands are unremarkable. Pancreas is normal in appearance. There are punctate bilateral intrarenal calculi. There is no right ureteral calculus. There is a 5 mm calculus in the ureter adjacent to the left iliac artery anterior to the sacrum. There is mild left hydronephrosis. There is no bowel obstruction. There is no ascites. Lymph node adjacent to the celiac artery is increased in size since the old exam, a nonspecific finding. Node measures 1.5 x 2.8 cm still within normal limits. No other enlarged lymph node is noted. There is no periaortic adenopathy. IMPRESSION: 1. 5 mm calculus in the right ureter at the level the iliac artery on the left. 2. Mild left hydronephrosis. 3. Punctate bilateral intrarenal calculi. 4. Nonspecific celiac node, no other evidence of adenopathy. 5. No other acute finding. [] Heart Score: Risk Factors: Risk Factors: DM, Current or recent (<one month) smoker, HTN, HLP, family history of CAD, obesity. Risk Scores: Score 0 - 3: 2.5% MACE over next 6 weeks - Discharge Home Score 4 - 6: 20.3% MACE over next 6 weeks - Admit for Clinical Observation Score 7 - 10: 72.7% MACE over next 6 weeks - Early Invasive Strategies Course & Med Decision Making: Course & Med Decision Making Pertinent Labs and Imaging studies reviewed. (See chart for details) [] Dragon Disclaimer: Dragon Disclaimer: This electronic medical record was generated, in whole or in part, using a voice recognition dictation system. Departure Departure: Impression: Primary Impression: Ureterolithiasis Disposition: 01 HOME SELF CARE/HOMELESS Condition: STABLE Referrals: SHAE CESAR (PCP) Patient Instructions: Diet for Kidney Stones Additional Instructions: Call your urologist at today to make follow-up appointment Scripts Naproxen (NAPROSYN) 500 Mg Tablet 1 TAB PO BID for pain for 10 Days, #20 TAB 0 Refills Prov: GARCIA FINK MD 04/23/20 Oxycodone HCl/Acetaminophen (Percocet 5-325 mg Tablet) 1 Each Tablet 1 TAB PO PRN TID PRN for PAIN MDD 3 Tablet(s) for 5 Days, #15 TAB 0 Refills Prov: GARCIA FINK MD 04/23/20 Tamsulosin Hcl (FLOMAX) 0.4 Mg Cap.er.24h 1 CAP PO DAILY for kidney stone for 10 Days, #10 CAP 11 Refills Prov: GARCIA FINK MD 04/23/20 Ondansetron Hcl (ZOFRAN) 4 Mg Tablet 1 TAB PO PRN Q6HRS PRN for NAUSEA, #6 TAB Prov: GARCIA FINK MD 04/23/20 GARCIA FINK MD Apr 23, 2020 07:34
[2020-04-23 07:41] LABS: BASO % 1 % (0-3); EOS # 0.3 x10^3/uL (0.0-0.7); EOS % 5 % (0-3); HEMATOCRIT 46.9 % (39.0-53.0); HEMOGLOBIN 15.2 g/dL (13.0-17.5); LYMPH # 2.8 x10^3/uL (1.0-4.8); LYMPH % 42 % (24-48); MEAN CORPUSCULAR HEMOGLOBIN 29 pg (25-35); MEAN CORPUSCULAR HGB CONC 32 g/dL (31-37); MEAN CORPUSCULAR VOLUME 88 fL (79-100); MONO # 0.6 x10^3/uL (0.0-1.1); MONO % 10 % (0-9); NEUT # 2.9 x10^3uL (1.8-7.7); NEUT % 43 % (31-73); PLATELET COUNT 246 x10^3/uL (140-400); RED CELL DISTRIBUTION WIDTH 14.2 % (11.5-14.5); WHITE BLOOD COUNT 6.7 x10^3/uL (4.0-11.0)
[2020-04-23 07:45] LABS: CALCIUM 8.5 mg/dL (8.5-10.1); CREATININE 1.2 mg/dL (0.7-1.3); GFR 68.9; POTASSIUM 3.1 mmol/L (3.5-5.1)
[2020-04-23 07:51] LABS: ALBUMIN/GLOBULIN RATIO 1.1 (1.0-1.7); TOTAL BILIRUBIN 0.5 mg/dL (0.2-1.0); TOTAL PROTEIN 7.6 g/dL (6.4-8.2)
--- NOTE | 2020-04-23 08:04 | RAD ---
CT abdomen pelvis without contrast. HISTORY: Left flank pain CT scan the abdomen pelvis was done without contrast. Comparison is made with a study from December 12. Lung bases are clear. There is no effusion. A tiny cysts in the left liver unchanged from the old study. Spleen and adrenal glands are unremarkable. Pancreas is normal in appearance. There are punct ate bilateral intrarenal calculi. There is no right ureteral calculus. There is a 5 mm calculus in th e ureter adjacent to the left iliac artery anterior to the sacrum. There is mild left hydronephrosis. There is no bowel obstruction. There is no ascites. Lymph node adjacent to the celiac artery is incr eased in size since the old exam, a nonspecific finding. Node measures 1.5 x 2.8 cm still within norm al limits. No other enlarged lymph node is noted. There is no periaortic adenopathy. IMPRESSION: 1. 5 mm calculus in the right ureter at the level the iliac artery on the left. 2. Mild left hydronephrosis. 3. Punctate bilateral intrarenal calculi. 4. Nonspecific celiac node, no other evidence of adenopathy. 5. No other acute finding. PQRS Compliance Statement: One or more of the following individualized dose reduction techniques were utilized for this examinat ion: 1. Automated exposure control 2. Adjustment of the mA and/or kV according to patient size 3. Use of iterative reconstruction technique Electronically signed by: Iglesia Perez MD (04/23/2020 8:01 AM) [id number]
[2020-04-23 08:05] LABS: BILIRUBIN,URINE NEG (NEG); CLARITY,URINE HAZY; COLOR,URINE YELLOW; GLUCOSE,URINE NEG (NEG); NITRITE,URINE NEG (NEG); RBC,URINE >40 /HPF (0-2); UROBILINOGEN,URINE 0.2 mg/dL (0.2 mg/dL)
[2020-04-23 08:06] LABS: BACTERIA,URINE FEW /HPF (0-FEW); SQUAMOUS EPITHELIAL CELL,UR FEW /LPF
[2020-04-23] MEDS ORDERED: NAPR-683 PO (08:24)
[2020-04-23] MEDS ORDERED: TAMS0.4C97 PO (08:24)
[2020-04-23] MEDS ORDERED: ONDA4TAB7 PO (08:24)
[2020-04-23] MEDS ORDERED: OXYC-325 PO (08:24)
[2020-04-23 08:30] VITALS: BP 120/75
== END 2020-04-23 08:41 | disposition home or self-care (01) ==
LOC: ER 06:53
DX: N13.2 Hydronephrosis with renal and ureteral calculous obstruction (principal); Z87.442 Personal history of urinary calculi; Z88.1 Allergy status to other antibiotic agents
CPT/HCPCS: 36415; 74176; 80053; 81001; 85025; 96361; 96374; 96375; 99284; J1885; J2405; J7040

== ENCOUNTER 2020-04-25 05:16 | Emergency (ER) | payer MEDICAID ==
[~2020-04-25] VITALS: Ht 172.7 cm; Wt 69.9 kg
[~2020-04-25 05:16] MED LIST changes: +ONDA4TAB7 PO; +OXYC-325 PO
[2020-04-25] MEDS ORDERED: ONDANSETRON PF 4 MG/2 ML VIAL. IVP ONE (06:30)
[2020-04-25] MEDS ORDERED: IV NORMAL SALINE 1,000ML 1,000 ML IV ONE (06:30)
[2020-04-25] MEDS ORDERED: KETOROLAC 15 MG/ML VIAL. IVP ONE (06:30)
[2020-04-25 06:40] VITALS: BP 130/86
[2020-04-25] MEDS ORDERED: ONDA4TAB12 PO (06:42)
--- NOTE | 2020-04-25 06:44 | PHYS DOC ---
Past History Past Medical History: Kidney Stones Past Surgical History: Other Additional Past Surgical Histo: kidney stones, rt foot -crush injury Alcohol Use: None Drug Use: None General Adult EDM: Chief Complaint: FLANK PAIN HPI: HPI: Patient is a 34-year-old male coming in for his kidney stone pain patient was seen here a day and a half ago and diagnosed with nephrolithiasis. Patient states that he took a Percocet last night, but did not take one this morning prior to coming in because he could not find his Zofran. Patient feels like he needs to urinate but cannot. Denies any new symptoms. Has not followed up with his primary care or urologist. Review of Systems: Review of Systems: All other systems within normal limits except for as noted in the HPI Current Medications: Current Meds: Current Medications Medications (Trade) Dose Ordered Sig/Jonah Start Time Stop Time Status Last Admin Dose Admin Ketorolac Tromethamine (Toradol 15mg Vial) 15 mg 1X ONCE 04/25/20 06:30 04/25/20 06:31 Ondansetron HCl (Zofran) 4 mg 1X ONCE 04/25/20 06:30 04/25/20 06:31 Sodium Chloride 1,000 ml @ 1,000 mls/hr 1X ONCE 04/25/20 06:30 04/25/20 07:29 Allergies: Allergies: Allergies Coded Allergies Type Severity Reaction Last Updated Verified amoxicillin Allergy Intermediate 04/25/20 Yes Physical Exam: PE: Constitutional: Well developed, well nourished, no acute distress, non-toxic appearance. [] HENT: Normocephalic, atraumatic, bilateral external ears normal, nose normal. [] Eyes: PERRLA, conjunctiva normal, no discharge. [] Neck: No rigidity, supple, no stridor. [] Cardiovascular: Regular rate and rhythm, brisk cap refill [] Lungs & Thorax: Non labored symmetric respirations, no tachypnea or respiratory distress [] Abdomen: Soft, nondistended. Skin: Warm, dry, no erythema, no rash. [] Back: No tenderness, no CVA tenderness. [] Extremities: No deformities, range of motion grossly intact, no lower extremity edema [] Neurologic: Alert and oriented X 3, no focal deficits noted. [] Psychologic: Affect normal, judgement normal, mood normal. [] Current Patient Data: Vital Signs: Vital Signs Date Time Temp Pulse Resp B/P (MAP) Pulse Ox O2 Delivery O2 Flow Rate FiO2 04/25/20 05:45 98.3 88 20 125/79 (94) 98 Room Air EKG: EKG: [] Radiology/Procedures: Radiology/Procedures: [] Heart Score: Risk Factors: Risk Factors: DM, Current or recent (<one month) smoker, HTN, HLP, family history of CAD, obesity. Risk Scores: Score 0 - 3: 2.5% MACE over next 6 weeks - Discharge Home Score 4 - 6: 20.3% MACE over next 6 weeks - Admit for Clinical Observation Score 7 - 10: 72.7% MACE over next 6 weeks - Early Invasive Strategies Course & Med Decision Making: Course & Med Decision Making Pertinent Labs and Imaging studies reviewed. (See chart for details) [] Dragon Disclaimer: Dragon Disclaimer: This electronic medical record was generated, in whole or in part, using a voice recognition dictation system. Departure Departure: Impression: Primary Impression: Ureterolithiasis Disposition: 01 DC HOME SELF CARE/HOMELESS Condition: STABLE Referrals: SHAE CESAR (PCP) Patient Instructions: Diet for Kidney Stones Additional Instructions: Contact: [facility] [place] [address] [place] [id number], [facility] [phone] Or your primary care provider for follow-up. Scripts Ondansetron (ONDANSETRON ODT) 4 Mg Tab.rapdis 1 TAB PO PRN Q6-8HRS for nausea for 5 Days, #16 TAB Prov: GARCIA FINK MD 04/25/20 GARCIA FINK MD Apr 25, 2020 06:43
== END 2020-04-25 06:50 | disposition home or self-care (01) ==
LOC: ER 05:16
DX: N20.1 Calculus of ureter (principal); Z87.442 Personal history of urinary calculi; Z88.1 Allergy status to other antibiotic agents
CPT/HCPCS: 96374; 96375; 99284; J1885; J2405; J7030

== ENCOUNTER 2021-01-28 08:47 | Emergency (ER) | payer MEDICAID ==
[~2021-01-28] VITALS: Ht 172.7 cm; Wt 70.0 kg
[~2021-01-28 08:47] MED LIST changes: +ONDA4TAB12 PO
--- NOTE | 2021-01-28 09:15 | PHYS DOC ---
Past History Past Medical History: Kidney Stones Past Surgical History: Other Additional Past Surgical Histo: kidney stones, rt foot -crush injury Alcohol Use: None Drug Use: None General Adult EDM: Chief Complaint: NAUSEA/VOMITING/DIARRHEA HPI: HPI: 35-year-old male presents with vomiting and dizziness. He woke up this morning and was feeling a bit nauseated. He thought he was a little bit lightheaded but not room spinning dizzy. He tried to eat some breakfast and that made him more nauseated. He then had a short episode of room spinning dizziness which made him throw up. He had a second episode and decided to come to the emergency room. He had an additional episode of vomiting in the vehicle on the way over here. He states that laying his head back or moving too quickly seemed to cause room spinning. He does not know if the nausea and vomiting is linked to or separate from the dizzy spells. Patient denies fever or chills. He was feeling fine yesterday. He took one half of a Xanax pill for anxiety last night at 8 PM. Review of Systems: Review of Systems: Constitutional: Denies fever or chills Eyes: Denies change in visual acuity HENT: Denies nasal congestion or sore throat Respiratory: Denies cough or shortness of breath Cardiovascular: Denies chest pain or edema GI: nausea, vomiting. Denies abdominal pain, bloody stools or diarrhea : Denies dysuria Musculoskeletal: Denies back pain or joint pain Integument: Denies rash Neurologic: DIzziness. Denies headache, focal weakness or sensory changes Endocrine: Denies polyuria or polydipsia Lymphatic: Denies swollen glands Psychiatric: Denies depression or anxiety Current Medications: Current Meds: Current Medications Medications (Trade) Dose Ordered Sig/Jonah Start Time Stop Time Status Last Admin Dose Admin Meclizine HCl (Antivert) 25 mg 1X ONCE 01/28/21 09:15 01/28/21 09:16 Ondansetron HCl (Zofran) 4 mg 1X ONCE 01/28/21 09:15 01/28/21 09:16 Sodium Chloride 1,000 ml @ 1,000 mls/hr 1X ONCE 01/28/21 09:15 01/28/21 10:14 Allergies: Allergies: Allergies Coded Allergies Type Severity Reaction Last Updated Verified amoxicillin Allergy Intermediate 04/25/20 Yes Physical Exam: PE: Constitutional: Well developed, well nourished, vomiting, non-toxic appearance. [] HENT: Normocephalic, atraumatic, bilateral external ears normal, oropharynx moist, no oral exudates, nose normal. [] Eyes: PERRLA, EOMI, conjunctiva normal, no discharge. [] Neck: Normal range of motion, no tenderness, supple, no stridor. [] Cardiovascular: Heart rate regular rhythm, no murmur [] Lungs & Thorax: Bilateral breath sounds clear to auscultation [] Abdomen: Bowel sounds normal, soft, no tenderness, no masses, no pulsatile masses. [] Skin: Warm, dry, no erythema, no rash. [] Back: No tenderness, no CVA tenderness. [] Extremities: No tenderness, no cyanosis, no clubbing, ROM intact, no edema. [] Neurologic: Alert and oriented X 3, normal motor function, normal sensory function, no focal deficits noted. [] Psychologic: Affect normal, judgement normal, mood normal. [] EKG: EKG: [] Radiology/Procedures: Radiology/Procedures: [] Heart Score: C/O Chest Pain: N/A Risk Factors: Risk Factors: DM, Current or recent (<one month) smoker, HTN, HLP, family histo ry of CAD, obesity. Risk Scores: Score 0 - 3: 2.5% MACE over next 6 weeks - Discharge Home Score 4 - 6: 20.3% MACE over next 6 weeks - Admit for Clinical Observation Score 7 - 10: 72.7% MACE over next 6 weeks - Early Invasive Strategies Course & Med Decision Making: Course & Med Decision Making Pertinent Labs and Imaging studies reviewed. (See chart for details) The patient's labs are unremarkable. We have given him Zofran, meclizine, and a liter normal saline. He is feeling a bit better at this time. I will discharge him with a prescription for meclizine. He is stable for discharge at this time. [] Dragon Disclaimer: Dragon Disclaimer: This electronic medical record was generated, in whole or in part, using a voice recognition dictation system. Departure Departure: Impression: Primary Impression: Vomiting Additional Impression: Dizziness Disposition: HOME / SELF CARE / HOMELESS Condition: STABLE Referrals: SHAE CESAR (PCP) Patient Instructions: Dizziness, [id number] Scripts Meclizine Hcl (MECLIZINE HCL) 25 Mg Tablet 1 TAB PO PRN TID PRN for DIZZINESS, #30 TAB Prov: MARGRET HOWARD DO 01/28/21 MARGRET HOWARD DO Jan 28, 2021 09:15
[2021-01-28 09:16] VITALS: BP 112/69
[2021-01-28 09:52] LABS: BASO % 1 % (0-3); EOS # 0.3 x10^3/uL (0.0-0.7); EOS % 6 % (0-3); HEMATOCRIT 47.3 % (39.0-53.0); HEMOGLOBIN 15.8 g/dL (13.0-17.5); LYMPH # 1.6 x10^3/uL (1.0-4.8); LYMPH % 36 % (24-48); MEAN CORPUSCULAR HEMOGLOBIN 30 pg (25-35); MEAN CORPUSCULAR HGB CONC 33 g/dL (31-37); MEAN CORPUSCULAR VOLUME 89 fL (79-100); MONO # 0.4 x10^3/uL (0.0-1.1); MONO % 8 % (0-9); NEUT # 2.2 x10^3uL (1.8-7.7); NEUT % 49 % (31-73); PLATELET COUNT 254 x10^3/uL (140-400); RED BLOOD COUNT 5.33 x10^6/uL (4.30-5.70); RED CELL DISTRIBUTION WIDTH 14.1 % (11.5-14.5); WHITE BLOOD COUNT 4.5 x10^3/uL (4.0-11.0)
[2021-01-28 10:00] LABS: BILIRUBIN,URINE NEG (NEG); CLARITY,URINE CLEAR; COLOR,URINE YELLOW; GLUCOSE,URINE NEG (NEG); NITRITE,URINE NEG (NEG); UROBILINOGEN,URINE 0.2 mg/dL (0.2 mg/dL)
[2021-01-28 10:01] LABS: GFR 84.5; POTASSIUM 3.9 mmol/L (3.5-5.1)
[2021-01-28] MEDS: IV NORMAL SALINE 1,000ML 1,000 ML IV ONE (10:04)
[2021-01-28] MEDS: ONDANSETRON PF 4 MG/2 ML VIAL. IVP ONE (10:04)
[2021-01-28 10:05] LABS: BARBITURATES NEG (NEG); BENZODIAZEPINES POS (NEG); CANNABINOIDS NEG (NEG); COCAINE NEG (NEG); METHADONE NEG (NEG); OPIATES NEG (NEG); PHENCYCLIDINE NEG (NEG)
[2021-01-28] MEDS: MECLIZINE 12.5 MG TABLET. PO ONE (10:05)
[2021-01-28 10:06] LABS: BACTERIA,URINE 0 /HPF (0-FEW); RBC,URINE RARE /HPF (0-2); SQUAMOUS EPITHELIAL CELL,UR FEW /LPF; WBC,URINE OCC /HPF (0-4)
[2021-01-28 10:08] LABS: ALBUMIN 4.1 g/dL (3.4-5.0); ALBUMIN/GLOBULIN RATIO 1.1 (1.0-1.7); TOTAL BILIRUBIN 0.6 mg/dL (0.2-1.0); TOTAL PROTEIN 7.7 g/dL (6.4-8.2)
[2021-01-28 10:10] LABS: AMPHETAMINE/METHAMPHETAMINE NEG (NEG)
[2021-01-28] MEDS ORDERED: MECL-75 PO (10:58)
== END 2021-01-28 11:10 | disposition home or self-care (01) ==
LOC: ER 08:47
DX: R11.2 Nausea with vomiting, unspecified (principal); R42 Dizziness and giddiness; R11.0 Nausea; Z87.442 Personal history of urinary calculi; Z88.1 Allergy status to other antibiotic agents
CPT/HCPCS: 36415; 80053; 80307; 81001; 85025; 96361; 96374; 99283; J2405; J7030